=== PATIENT | male | born 1970 | race Caucasian/White ===

== ENCOUNTER 2019-05-26 10:18 | Emergency (ER) | payer OTHER ==
[~2019-05-26] VITALS: Ht 180.3 cm; Wt 122.7 kg
[2019-05-26] MEDS ORDERED: BP MEDS PO (11:50)
[2019-05-26] MEDS ORDERED: SODIUM CHLORIDE 0.9% 1,000 ML IV ONE (12:15)
[2019-05-26 13:06] LABS: GLUCOSE,POINT OF CARE 316 MG/DL (70-110)
[2019-05-26 13:17] LABS: CALCIUM, TOTAL 8.8 mg/dL (8.8-10.5); CREATININE 11.21 mg/dL (0.60-1.30); POTASSIUM 4.6 mmol/L (3.5-5.1)
[2019-05-26 13:20] LABS: ALBUMIN 4.3 g/dL (3.4-5.0); BILIRUBIN,TOTAL 0.5 mg/dL (0.1-1.0); TOTAL PROTEIN, SERUM 8.9 g/dL (6.4-8.2)
[2019-05-26 13:50] LABS: BASOPHILS % (AUTO) 0.6 % (0.0-2.0); EOSINOPHILS % (AUTO) 2.1 % (1.0-6.0); HEMATOCRIT 38.8 % (41-53); HEMOGLOBIN 13.2 g/dL (13.5-17.5); LYMPHOCYTES % (AUTO) 19.6 % (22.0-44.0); MEAN CORPUSCULAR HEMOGLOBIN 32.3 pg (26.0-34.0); MEAN CORPUSCULAR HGB CONC 34.1 G/dL (31.0-37.0); MEAN CORPUSCULAR VOLUME 95 fL (80-100); MONOCYTES # (AUTO) 0.9 K/uL (0.1-1.0); MONOCYTES % (AUTO) 8.5 % (2.0-9.0); NEUTROPHILS % (AUTO) 69.2 % (40.0-70.0); PLATELET COUNT (AUTO) 152 K/uL (150-450); RED BLOOD CELL COUNT(AUTO) 4.09 MIL/uL (4.50-5.90); RED CELL DISTRIBUTION WIDTH 13.6 % (11.5-14.5)
[2019-05-26] MEDS ORDERED: INSULIN REGULAR, HUMAN 100 UNITS/ML SQ ONE (14:30)
[2019-05-26 15:09] VITALS: BP 148/88
== END 2019-05-26 15:10 | disposition home or self-care (01) ==
LOC: EMS 10:19
DX: Z02.89 Encounter for other administrative examinations (principal); I12.0 Hypertensive chronic kidney disease with stage 5 chronic kidney disease or end stage renal disease; E11.22 Type 2 diabetes mellitus with diabetic chronic kidney disease; N18.6 End stage renal disease; Z99.2 Dependence on renal dialysis; Z79.899 Other long term (current) drug therapy
CPT/HCPCS: 36415; 71045; 80053; 82962; 85025; 96372; 99284; J1815; 82948

== ENCOUNTER 2019-05-26 18:30 | Inpatient (IN) | payer OTHER ==
[~2019-05-26 18:30] MED LIST: BP MEDS PO
[2019-05-26 19:55] VITALS: BP 155/103
[2019-05-26] MEDS ORDERED: BISACODYL 10 MG RECTAL RECTAL SUPPOSITORY PR PRN (20:15)
[2019-05-26] MEDS ORDERED: INSULIN LISPRO 100 UNITS/ML SQ PRN (20:15)
[2019-05-26] MEDS ORDERED: GLUCAGON,HUMAN RECOMBINANT 1 MG VIAL IM PRN (20:15)
[2019-05-26] MEDS ORDERED: ZOLPIDEM TARTRATE 5 MG TABLET PO PRN (20:15)
[2019-05-26] MEDS: DOCUSATE SODIUM 100 MG CAPSULE PO SCH (21:12)
[2019-05-26] MEDS: AmLODIPine BESYLATE 10 MG TABLET PO SCH (21:12)
[2019-05-26] MEDS ORDERED: DEXTROSE 50%-WATER 25 GM/50 ML SYG IVP PRN (22:30)
[2019-05-26 23:40] VITALS: BP 153/62
[2019-05-27 05:09] VITALS: BP 148/73
[2019-05-27] MEDS: INSULIN LISPRO 100 UNITS/ML SQ PRN ×3 (06:30→20:01)
[2019-05-27 06:58] LABS: BASOPHILS % (AUTO) 0.6 % (0.0-2.0); EOSINOPHILS % (AUTO) 2.3 % (1.0-6.0); HEMATOCRIT 34.9 % (41-53); HEMOGLOBIN 12.2 g/dL (13.5-17.5); LYMPHOCYTES # (AUTO) 2.1 K/uL (1.0-4.8); LYMPHOCYTES % (AUTO) 25.5 % (22.0-44.0); MEAN CORPUSCULAR HEMOGLOBIN 32.7 pg (26.0-34.0); MEAN CORPUSCULAR VOLUME 94 fL (80-100); MONOCYTES # (AUTO) 0.6 K/uL (0.1-1.0); MONOCYTES % (AUTO) 7.6 % (2.0-9.0); NEUTROPHILS # (AUTO) 5.4 K/uL (1.8-7.7); PLATELET COUNT (AUTO) 145 K/uL (150-450); RED BLOOD CELL COUNT(AUTO) 3.73 MIL/uL (4.50-5.90); RED CELL DISTRIBUTION WIDTH 13.4 % (11.5-14.5)
[2019-05-27 07:24] LABS: CALCIUM, TOTAL 7.9 mg/dL (8.8-10.5); CREATININE 12.7 mg/dL (0.60-1.30); POTASSIUM 4.1 mmol/L (3.5-5.1)
[2019-05-27 07:31] LABS: GLUCOMETER DEV NAME(LOC) 6N.1; GLUCOSE,POINT OF CARE 233 MG/DL (70-110)
[2019-05-27 07:37] VITALS: BP 135/76
[2019-05-27] MEDS: DOCUSATE SODIUM 100 MG CAPSULE PO SCH ×2 (07:37→19:58)
[2019-05-27] MEDS: ASPIRIN 81 MG CHEWABLE TABLET PO SCH (07:37)
[2019-05-27] MEDS: FAMOTIDINE 20 MG TABLET PO SCH (07:37)
[2019-05-27] MEDS ORDERED: SODIUM CHLORIDE 0.9% 2,000 ML IV ONE (10:52)
[2019-05-27 11:23] VITALS: BP 154/78
[2019-05-27 12:41] LABS: GLUCOMETER DEV NAME(LOC) 6N.1; GLUCOSE,POINT OF CARE 237 MG/DL (70-110)
[2019-05-27 15:16] VITALS: BP 162/95
[2019-05-27] MEDS: ACETAMINOPHEN 325 MG TABLET PO PRN (16:53)
[2019-05-27] MEDS ORDERED: MINOXIDIL 2.5 MG TABLET PO ONE (18:15)
[2019-05-27 18:25] VITALS: BP 177/101
[2019-05-27 18:51] LABS: GLUCOMETER DEV NAME(LOC) 6N.1; GLUCOSE,POINT OF CARE 136 MG/DL (70-110)
[2019-05-27 19:45] VITALS: BP 150/78
[2019-05-27] MEDS: AmLODIPine BESYLATE 10 MG TABLET PO SCH (19:59)
[2019-05-27 21:31] LABS: GLUCOMETER DEV NAME(LOC) 6N.1; GLUCOSE,POINT OF CARE 233 MG/DL (70-110)
[2019-05-28] VITALS (7 sets, daily range): BP systolic 116–148; BP diastolic 59–95
[2019-05-28] MEDS: INSULIN LISPRO 100 UNITS/ML SQ PRN ×4 (06:34→20:50)
[2019-05-28 06:51] LABS: GLUCOMETER DEV NAME(LOC) 6N.1; GLUCOSE,POINT OF CARE 229 MG/DL (70-110)
[2019-05-28] MEDS: ASPIRIN 81 MG CHEWABLE TABLET PO SCH (08:16)
[2019-05-28] MEDS: DOCUSATE SODIUM 100 MG CAPSULE PO SCH ×2 (08:16→20:51)
[2019-05-28] MEDS: FAMOTIDINE 20 MG TABLET PO SCH (08:16)
[2019-05-28] MEDS: ACETAMINOPHEN 325 MG TABLET PO PRN (10:39)
[2019-05-28 12:01] LABS: GLUCOMETER DEV NAME(LOC) 6N.1; GLUCOSE,POINT OF CARE 168 MG/DL (70-110)
[2019-05-28 17:51] LABS: GLUCOMETER DEV NAME(LOC) 6N.1; GLUCOSE,POINT OF CARE 208 MG/DL (70-110)
[2019-05-28] MEDS: AmLODIPine BESYLATE 10 MG TABLET PO SCH (20:43)
[2019-05-29 04:05] LABS: GLUCOMETER DEV NAME(LOC) 6N.1; GLUCOSE,POINT OF CARE 279 MG/DL (70-110)
[2019-05-29 05:21] VITALS: BP 111/85
[2019-05-29] MEDS: INSULIN LISPRO 100 UNITS/ML SQ PRN ×4 (06:00→20:49)
[2019-05-29 06:15] LABS: GLUCOMETER DEV NAME(LOC) 6N.1; GLUCOSE,POINT OF CARE 200 MG/DL (70-110)
[2019-05-29 07:34] LABS: ALBUMIN 3.6 g/dL (3.4-5.0); CALCIUM, TOTAL 8.5 mg/dL (8.8-10.5); CREATININE 9.23 mg/dL (0.60-1.30); PHOSPHORUS 6.1 mg/dL (2.5-4.9); POTASSIUM 3.9 mmol/L (3.5-5.1)
[2019-05-29 07:54] VITALS: BP 118/84
[2019-05-29 08:39] LABS: BASOPHILS % (AUTO) 0.7 % (0.0-2.0); EOSINOPHILS % (AUTO) 2.1 % (1.0-6.0); HEMATOCRIT 39.1 % (41-53); HEMOGLOBIN 13.3 g/dL (13.5-17.5); LYMPHOCYTES # (AUTO) 2.1 K/uL (1.0-4.8); LYMPHOCYTES % (AUTO) 25.6 % (22.0-44.0); MEAN CORPUSCULAR HEMOGLOBIN 32.2 pg (26.0-34.0); MEAN CORPUSCULAR HGB CONC 33.9 G/dL (31.0-37.0); MEAN CORPUSCULAR VOLUME 95 fL (80-100); MONOCYTES # (AUTO) 0.8 K/uL (0.1-1.0); MONOCYTES % (AUTO) 9.6 % (2.0-9.0); PLATELET COUNT (AUTO) 150 K/uL (150-450); RED BLOOD CELL COUNT(AUTO) 4.12 MIL/uL (4.50-5.90); RED CELL DISTRIBUTION WIDTH 13.7 % (11.5-14.5)
[2019-05-29] MEDS: DOCUSATE SODIUM 100 MG CAPSULE PO SCH ×2 (09:00→21:00)
[2019-05-29] MEDS: FAMOTIDINE 20 MG TABLET PO SCH (09:58)
[2019-05-29] MEDS: ASPIRIN 81 MG CHEWABLE TABLET PO SCH (09:58)
[2019-05-29 11:51] LABS: GLUCOMETER DEV NAME(LOC) 6N.1; GLUCOSE,POINT OF CARE 291 MG/DL (70-110)
[2019-05-29 13:20] VITALS: BP 134/90
[2019-05-29 17:00] VITALS: BP 159/86
[2019-05-29 19:55] VITALS: BP 132/73
[2019-05-29] MEDS: AmLODIPine BESYLATE 10 MG TABLET PO SCH (20:06)
[2019-05-29] MEDS: ACETAMINOPHEN 325 MG TABLET PO PRN (20:06)
[2019-05-29 21:06] LABS: GLUCOMETER DEV NAME(LOC) 6N.1; GLUCOSE,POINT OF CARE 184 MG/DL (70-110)
[2019-05-29 21:06] LABS: GLUCOMETER DEV NAME(LOC) 6N.1; GLUCOSE,POINT OF CARE 217 MG/DL (70-110)
[2019-05-29 23:35] VITALS: BP 126/71
[2019-05-30 04:58] VITALS: BP 135/91
[2019-05-30] MEDS: INSULIN LISPRO 100 UNITS/ML SQ PRN ×2 (05:48→13:15)
[2019-05-30 06:31] LABS: GLUCOMETER DEV NAME(LOC) 6N.1; GLUCOSE,POINT OF CARE 211 MG/DL (70-110)
[2019-05-30 08:07] VITALS: BP 129/76
[2019-05-30] MEDS: DOCUSATE SODIUM 100 MG CAPSULE PO SCH (09:00)
[2019-05-30] MEDS ORDERED: AmLODIPine BESYLATE 5 MG TABLET PO SCH (09:00)
[2019-05-30] MEDS: ASPIRIN 81 MG CHEWABLE TABLET PO SCH (09:47)
[2019-05-30] MEDS: FAMOTIDINE 20 MG TABLET PO SCH (09:47)
[2019-05-30 11:59] VITALS: BP 148/89
[2019-05-30] MEDS ORDERED: AMLO10TA7 PO (12:06)
[2019-05-30] MEDS ORDERED: ASPI-1182 PO (12:06)
[2019-05-30] MEDS ORDERED: SITA25 PO (12:06)
[2019-05-30 14:26] LABS: GLUCOMETER DEV NAME(LOC) 6N.1; GLUCOSE,POINT OF CARE 186 MG/DL (70-110)
[2019-05-30 14:35] LABS: GLUCOMETER DEV NAME(LOC) 6N.1; GLUCOSE,POINT OF CARE 149 MG/DL (70-110)
== END 2019-05-30 15:00 | DRG 682 ==
LOC: 6S 18:30
PROVIDERS: ADMIT Internal Medicine; ATTEND Internal Medicine
PROC: 5A1D70Z Performance of Urinary Filtration, Intermittent, Less than 6 Hours Per Day (ICD-10-PCS; principal; 2019-05-27)
PROC: 5A1D70Z Performance of Urinary Filtration, Intermittent, Less than 6 Hours Per Day (ICD-10-PCS; 2019-05-28)
PROC: 5A1D70Z Performance of Urinary Filtration, Intermittent, Less than 6 Hours Per Day (ICD-10-PCS; 2019-05-29)
PROC: 5A1D70Z Performance of Urinary Filtration, Intermittent, Less than 6 Hours Per Day (ICD-10-PCS; 2019-05-30)
DX: I12.0 Hypertensive chronic kidney disease with stage 5 chronic kidney disease or end stage renal disease (principal); N18.6 End stage renal disease; N25.81 Secondary hyperparathyroidism of renal origin; E11.22 Type 2 diabetes mellitus with diabetic chronic kidney disease; E11.65 Type 2 diabetes mellitus with hyperglycemia; D63.1 Anemia in chronic kidney disease; E11.21 Type 2 diabetes mellitus with diabetic nephropathy; E66.01 Morbid (severe) obesity due to excess calories; E78.00 Pure hypercholesterolemia, unspecified; E78.5 Hyperlipidemia, unspecified; Z79.899 Other long term (current) drug therapy; Z99.2 Dependence on renal dialysis
CPT/HCPCS: 83036; 83970; 87340; J7030